=== PATIENT | male | born 1950 | race Caucasian/White ===

== ENCOUNTER 2018-12-29 10:21 | Emergency (ER) | payer OTHER ==
[~2018-12-29] VITALS: Ht 172.7 cm; Wt 79.2 kg
[~2018-12-29 10:21] MED LIST: DICL100G37 TOP; IBUP-1542 PO
[2018-12-29 10:25] VITALS: BP 166/91; PULSE 98; RESP 18; Ht 172.7 cm; Wt 79.2 kg
[2018-12-29] MEDS ORDERED: KETOROLAC 30 MG INJ IM STA (11:33)
== END 2018-12-29 12:14 | disposition home or self-care (01) ==
LOC: FTE 10:21
DX: M25.561 Pain in right knee (principal); M25.562 Pain in left knee; M54.9 Dorsalgia, unspecified; Z87.891 Personal history of nicotine dependence
CPT/HCPCS: 96372; 99284; J1885